=== PATIENT | female | born 1980 ===

== ENCOUNTER 2022-01-28 11:15 | Inpatient (IN) | payer OTHER ==
[~2022-01-28] VITALS: Ht 152.4 cm; Wt 73.5 kg
== END 2022-02-01 14:28 | disposition home or self-care (01) | DRG 743 ==
LOC: O/R 01-30 06:10 → OB/GYN 01-30 06:10 → SURH 01-30 07:00 → OB/GYN 01-30 12:36
PROVIDERS: ADMIT Specialist; ATTEND Specialist
PROC: 0UT70ZZ Resection of Bilateral Fallopian Tubes, Open Approach (ICD-10-PCS; 2022-01-30)
PROC: 0UT10ZZ Resection of Left Ovary, Open Approach (ICD-10-PCS; 2022-01-30)
PROC: 0DNW0ZZ Release Peritoneum, Open Approach (ICD-10-PCS; 2022-01-30)
PROC: 0TN70ZZ Release Left Ureter, Open Approach (ICD-10-PCS; 2022-01-30)
PROC: 0TN60ZZ Release Right Ureter, Open Approach (ICD-10-PCS; 2022-01-30)
PROC: 0UT90ZZ Resection of Uterus, Open Approach (ICD-10-PCS; principal; 2022-01-30 07:00)
DX: D25.1 Intramural leiomyoma of uterus (principal); D25.2 Subserosal leiomyoma of uterus; Z20.822 Contact with and (suspected) exposure to COVID-19; N80.0 Endometriosis of uterus; N80.1 Endometriosis of ovary; N72 Inflammatory disease of cervix uteri; N80.2 Endometriosis of fallopian tube; N80.8 Other endometriosis; N83.12 Corpus luteum cyst of left ovary; N83.02 Follicular cyst of left ovary; N70.11 Chronic salpingitis; N71.1 Chronic inflammatory disease of uterus